=== PATIENT | male | born 1960 | race Caucasian/White ===

== ENCOUNTER → 2019-07-20 | Outpatient (CLI) | payer MEDICARE, OTHER ==
--- NOTE | 2019-07-20 19:55 | CONS ---
CONSULTATION DATE OF SERVICE: 07/20/2019 59-year-old gentleman has [facility] for obstructive sleep apnea- hypopnea syndrome. HISTORY OF PRESENT ILLNESS/SLEEP WAKE EVALUATION: Patient has been diagnosed with obstructive sleep apnea more than 15 years ago. Since that time, he is on treatment with CPAP. He is using the same machine, never got new machine. His equipment is very old. Even while using the machine, he still snores and wake up from sleep about 2 times with nocturia. His sleep schedule from 11 p.m. to 6:30 a.m. Sometimes he may have problem with falling asleep, although no TV in bedroom. He sleeps on the side. He wakes up from sleep with dry mouth, heartburn, gasping for air, and sweating. In the morning, patient wakes up tired, falling asleep during the day. Has episodes of anxiety. [place] Sleepiness Scale is in extremely high range of 21. He takes naps usually around 2:00 pm, does not feel refreshed after a nap. Does not see dreams during naps. No history of hypnagogic hallucinations, sleep paralysis or cataplexy. PAST MEDICAL HISTORY: Positive for coronary artery disease with heart attack, hypertension, hyperlipidemia, and peripheral neuropathy, back problems. PAST SURGICAL HISTORY: CABG in 2007 and stent insertions in 2008. SOCIAL HISTORY: Negative for smoking or using alcohol. FAMILY HISTORY: Hypertension, heart problems, hyperlipidemia, sinus problems, sleep apnea, pneumonia, headaches, acid reflux. REVIEW OF SYSTEMS: Multiple awakenings from sleep, sleepiness during the day. PHYSICAL EXAM: gentleman without distress. BP 121/64, HR 74, RR 18, height 5 feet 3 inches and one quarter, weight 231.2 pounds, body mass index 40.6, temperature 98.2, oxygen saturation at room air 96%. Oropharynx extremely low position of soft palate. Mallampati 4. Scar on the chest after CABG. ABDOMEN: Obese. NECK: Supple, no JVD. Thyroid is not palpable. LUNGS: Clear to percussion and to auscultation. Good air exchange. No wheezing or rhonchi. HEART: S1, S2 regular. No murmurs, gallops, or rubs. ABDOMEN: Obese. Soft and nontender. Bowel sounds are present. No organomegaly appreciated. EXTREMITIES: 1+ bilateral ankle edema. TRAIN DISPATCHER: Awake, alert, and oriented X3. Cranial nerves 2 to 7 intact. There is no fasciculation or atrophy. noted. No focal deficits observed. IMPRESSION: 1. History of obstructive sleep apnea for 15 years. The patient continued to use his machine, but has snoring and awakenings during sleep. Oropharynx: Extremely low position of soft palate, Mallampati 4. Extremely wide neck, obstructive sleep apnea- hypopnea syndrome. 2. Patient did not have any sleep study for last 15 years. 3. Obesity; body mass index 40.6. Patient changed his weight up and down for those years. 4. Coronary artery disease, status post myocardial infarction, status post coronary artery bypass grafting in 2007 and stent insertions in 2008. 5. Hypertension. 6. Hyperlipidemia. 7. History of peripheral neuropathy. 8. Back problems. PLAN: 1. Polysomnography for evaluation of patient's breathing during sleep. 2. CPAP/BiPAP titration if sleep study confirms obstructive sleep apnea-hypopnea syndrome. 3. Preferable position during sleep on the side. 4. No driving if patient feels any sleepiness. 5. I will see patient for follow up visit to explain results of testing and following plan. Thank you very much for referring this patient for consultation. Sincerely, Db Lizama MD, PhD, FAASM Diplomat of [employer] [facility] Letha MMJENNA / ALBERT: [id number] /
== END | disposition home or self-care (01) ==
LOC: SLEEP 15:21
PROVIDERS: ATTEND Internal Medicine
DX: R06.83 Snoring (principal); E66.9 Obesity, unspecified; Z68.41 Body mass index [BMI] 40.0-44.9, adult; I25.10 Atherosclerotic heart disease of native coronary artery without angina pectoris; I10 Essential (primary) hypertension; E78.5 Hyperlipidemia, unspecified; F41.9 Anxiety disorder, unspecified; R12 Heartburn; Z87.09 Personal history of other diseases of the respiratory system; Z95.1 Presence of aortocoronary bypass graft
CPT/HCPCS: 99211

== ENCOUNTER → 2019-08-09 | Outpatient (CLI) | payer MEDICARE, OTHER ==
[2019-08-09 15:33] LABS: African American GFR (CKD) >90 (>60 ml/min/1.73 sqM); Blood Urea Nitrogen 16 mg/dL (9-20); Non-African American GFR(CKD) >90 (>60 ml/min/1.73 sqM)
--- NOTE | 2019-08-11 09:33 | CT ---
EXAMINATION TYPE: CT chest w con DATE OF EXAM: 08/09/2019 COMPARISON: NONE HISTORY: Left sided chest pain. CT DLP: 673 mGycm. Automated Exposure Control for Dose Reduction was Utilized. TECHNIQUE: CT scan of the thorax is performed following with IV Contrast, patient injected with 100m l mL of Isovue 300. FINDINGS: LUNGS: Faint focal tree-in-bud opacity in the lateral left upper lobe on series 4 image 29. The remai nder of the lungs are grossly clear, there is no concerning parenchymal mass or nodule identified. There is no pleural effusion or pneumothorax seen. The tracheobronchial tree is patent. MEDIASTINUM: There are no greater than 1 cm hilar or mediastinal lymph nodes. Benign granulomatous c hanges seen of the luis armando and lung parenchyma with calcified benign mediastinal lymph nodes and scatter ed parenchymal punctate granulomas. No pericardial effusion is seen. Presumed coronary artery stent in the left main coronary artery. OTHER: There is a small fat-containing Bochdalek hernia. Small hiatal hernia is also seen. There is a 4.9 cm exophytic left renal cyst is partially visualized the upper abdomen. Hepatic steatosis is par tially visualized. IMPRESSION: 1. Very small focal area of tree-in-bud opacity, that can be seen in atypical infections such as myco bacterium avium, a marker was, or mycobacterium tuberculosis. Fungal etiologies are also possible. 2. Incidentally noted fat containing Bochdalek hernia, small hiatal hernia, mild degree hepatic steat osis is partially visualized, benign granulomatous changes, and 4.9 cm left exophytic renal cyst. 3. Presumed stent within the left main coronary artery versus focal coronary artery calcifications.
== END | disposition home or self-care (01) ==
LOC: RADCTMAIN 14:32
PROVIDERS: ATTEND Family Medicine
DX: R91.8 Other nonspecific abnormal finding of lung field (principal); R91.1 Solitary pulmonary nodule
CPT/HCPCS: 82565; 84520; 71260; 36415; Q9967

== ENCOUNTER 2019-08-19 10:39 | Day surgery (SDC) | payer MEDICARE, OTHER ==
[2019-08-17 11:37] VITALS: BMI 42.1
[~2019-08-19 10:39] MED LIST: ALBUTEROL NEB (CONC) 2.5 MG/0.5 ML INHALATION ONE; LACTATED RINGERS 1,000 ML IV SCH; LIDOCAINE 1% 20 ML VIAL (10MG/ML) FOR IV START INTRADERMA PRN; LIDOCAINE 2% (PF) 20 MG/ML 5 ML VIAL INHALATION ONE; LIDOCAINE VISCOUS 300 MG/15 ML CUP MUCOUS MEM ONE; SODIUM CHLORIDE 0.9% 1,000 ML IV SCH
[2019-08-19 11:07] VITALS: RESP 18; TEMP 97.8
[2019-08-19] MEDS ORDERED: LACTATED RINGERS 1,000 ML IV ONE (11:07)
[2019-08-19 11:15] LABS: Glucose,Whole Blood 102 mg/dL (75-99)
[2019-08-19] MEDS ORDERED: PROPOFOL 10 MG/ML 20 ML VIAL IV ONE (12:02)
[2019-08-19] MEDS ORDERED: LIDOCAINE 1% INJ 10MG/ML (20 ML MDV) ONE (12:02)
[2019-08-19 12:46] VITALS: BP 143/72; PULSE 77
--- NOTE | 2019-08-19 12:52 | PCN ---
PROCEDURE NOTE OPERATIVE REPORT: Bronchoscopy and bronchoalveolar lavage of the left upper lobe and lingula. PREOPERATIVE DIAGNOSIS: Chronic cough, abnormal CT of the chest showing tree-in-bud appearance in the left upper lobe and lingula. POSTOPERATIVE DIAGNOSIS: Chronic cough, tracheal bronchomalacia. ANESTHESIA USED: IV conscious sedation. PROCEDURE: The patient was prepared according to the bronchoscopy protocol. He was placed in the supine position, and we monitored his O2 saturation continuously. Blood pressure was intermittently monitored and cardiac rhythm was continuously monitored. After adequate IV conscious sedation, a few mL of lidocaine were instilled into the right naris, and the bronchoscope was inserted through the right naris down to the area of the vocal cords, which were visualized and they were noted to be patent. Lidocaine was applied over the vocal cords, and the bronchoscope was advanced further down to the trachea, thorough examination was done of the trachea, nicol, right upper lobe, right middle lobe, right lower lobe, left upper lobe, lingula and left lower lobe. There was no evidence of any endobronchial tumors. There was no evidence of any significant purulent secretions. There was evidence mostly of tracheobronchomalacia. The bronchoscope was wedged into the left upper lobe and lavage was done. It was also wedged in the superior segment of the lingula, and lavage of the lingula was done. Bronchoalveolar lavage of both superior segment of the lingula and left upper lobe was done, and the fluid was sent for different diagnostic studies. The procedure was well tolerated, no evidence of any immediate complications. Patient will be re-evaluated in the office in 2 weeks. MMODL / IJN: [id number] /
[2019-08-19 16:14] LABS: Appearance,BF Bloody; Nucleated Cells, Body Fluid 150 /uL; RBC, Body Fluid 39400 /uL
[2019-08-19 16:15] LABS: Mononuclear WBC,Body Fluid 46 %; Polynuclear WBC,Body Fluid 53 %; Total Cells Counted,Body Fluid 100
== END 2019-08-19 13:09 | disposition home or self-care (01) ==
LOC: ORWHC2ENDO 10:39
PROVIDERS: ATTEND Internal Medicine
DX: J98.4 Other disorders of lung (principal); K21.9 Gastro-esophageal reflux disease without esophagitis; J30.2 Other seasonal allergic rhinitis; E11.9 Type 2 diabetes mellitus without complications; Q61.2 Polycystic kidney, adult type; I10 Essential (primary) hypertension; I25.10 Atherosclerotic heart disease of native coronary artery without angina pectoris; G47.33 Obstructive sleep apnea (adult) (pediatric); E66.01 Morbid (severe) obesity due to excess calories; E78.5 Hyperlipidemia, unspecified; M10.9 Gout, unspecified; I25.2 Old myocardial infarction; K08.109 Complete loss of teeth, unspecified cause, unspecified class; Z68.41 Body mass index [BMI] 40.0-44.9, adult; Z88.0 Allergy status to penicillin; Z79.84 Long term (current) use of oral hypoglycemic drugs; Z79.899 Other long term (current) drug therapy; Z95.5 Presence of coronary angioplasty implant and graft; Z95.1 Presence of aortocoronary bypass graft; Z87.898 Personal history of other specified conditions
CPT/HCPCS: 94640; 87798 ×3; 87496; 87498; 87529; 88108; 88305; 89050; 87252; 87502; 87634; 87070; 87205; 87116; 87102; 87206; 31624; J2001 ×2; J2704